=== PATIENT | female | born 1950 | race Caucasian/White ===

== ENCOUNTER 2018-05-04 07:52 | Day surgery (SDC) | payer OTHER ==
--- NOTE | 2018-05-01 12:36 | PREOPHP ---
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 The patient presented for breast cancer screening and was found to have 2 lesions in the left breast. The first is at 1:00 5 cm from the nipple, 13 x 10 x 7 mm and the second is also at 1:00 4 cm from the nipple, 6 x 6 x 4 mm. Core needle biopsy has revealed ductal carcinoma in situ. She is scheduled to undergo excisional biopsy of these lesions with preoperative needle localization. MEDICATIONS: 1. Lantus insulin at night. 2. Metformin. 3. Atorvastatin. 4. Naproxen, which she takes for back disk problems and shoulder problems. 5. She also takes captopril for hypertension. ALLERGIES TO MEDICATIONS: None. PAST SURGICAL HISTORY: Left foot open reduction internal fixation and repair of umbilical hernia. REVIEW OF SYSTEMS: 3, para 3. PHYSICAL EXAMINATION: GENERAL: The patient is 5 foot 3 inches, 168 pounds VITAL SIGNS: Within normal limits. HEENT: Within normal limits. LUNGS: Clear. HEART: Regular rhythm. BREASTS: Examination of the right breast is unremarkable. Examination of the left breast reveals a small palpable nodule at 1 o'clock between the areola and the periphery. There is no axillary or supraclavicular lymphadenopathy. ABDOMEN: Soft. PELVIC AND RECTAL: Per primary care. EXTREMITIES: Without edema. NEUROLOGIC: Physiologic. ASSESSMENT AND PLAN: 1. Ductal carcinoma in situ, left breast, two lesions, upper outer quadrant. 2. Insulin-dependent diabetes. 3. Hypertension. PLAN: Full discussion has been had with the patient regarding the nature of her condition and the nature of the surgery, indications, alternatives, options and risks including bleeding, infection, scarring, distortion of the breast, need for additional surgery based on final pathology report and need for additional treatments based on final pathology, etc. All questions have been answered. She understands and agrees to proceed with left breast excisional biopsy of both lesions with preoperative needle localization. Dictated By: STEVE ALVAREZ/MEGHAN Conf#: [id number] DID#: [id number] PEDRO
[2018-05-04] VITALS (12 sets, daily range): BP systolic 109–158; BP diastolic 65–82; PULSE 61–71; RESP 15–22
[~2018-05-04 07:52] MED LIST: CEFAZOLIN 2 GM/50 ML (PMX) 50 ML IVPB ONE; LIDOCAINE 2% (SDV) 5 ML INJ ONE; SOD CHLORIDE 0.9% 1,000 ML IV SCH
[2018-05-04] MEDS ORDERED: LANT3I SC (08:41)
[2018-05-04] MEDS ORDERED: METF850T13 PO (08:42)
[2018-05-04] MEDS ORDERED: ACETAMINOPHEN 500 MG TAB PO STA (08:42)
--- NOTE | 2018-05-04 11:24 | HPN ---
Date/Time of Note Date/Time of Note DATE: 05/04/18 TIME: 11:23 Interval H&P Admission Note Pt. seen H&P reviewed: No system changes STEVE GUZMAN May 04, 2018 11:24
--- NOTE | 2018-05-04 11:29 | PREAC ---
Date/Time of Note Date/Time of Note DATE: 05/04/18 TIME: 11:15 Anesthesia Eval and Record Evaluation Time Pre-Procedure Interview DATE: 05/04/18 TIME: 11:15 Age 67 Sex female NPO: 8 hrs Preoperative diagnosis L DCIS Planned procedure L breast biopsy w/ needle localization Past Medical History Past Medical History: Includes Cardio: HTN, Dyslipidemia Endo: Diabetes Surgery & Anesthesia Issues No known issue (umbilical hernia, L foot ORIF) Meds Anticoagulation: No Beta Colby within 24 hr: No Reason Beta Colby not given: Pt. not on B-Colby Reported Medications Metformin Hcl* (Metformin Hcl*) 850 Mg Tablet, 850 MG PO WITH MEALS, #60 TAB 05/04/18 Insulin Glargine* (Lantus*) 100 Unit/Ml Soln, 40 UNIT SC QHS, #1 VIAL 05/04/18 Current Medications Sodium Chloride 1,000 ml @ 75 mls/hr [id number] IV ; Start 05/04/18 at 07:00; Stop 05/04/18 at 20:19 Meds reviewed: Yes Allergies Coded Allergies: No Known Drug Allergies (Unverified Allergy, Unknown, 05/04/18) Allergies Reviewed: Yes Labs/Studies Labs Reviewed: Reviewed by anesthesiologist Result Diagram: 05/04/18 0800 05/04/18 0800 Laboratory Tests 05/04/18 08:00 test: Negative Studies: ECG (nsr, nml) Pre-procedure Exam Last vitals Vital Signs Date Temp Pulse Resp B/P (MAP) Pulse Ox O2 O2 Flow FiO2 Time Delivery Rate 05/04/18 97.0 71 18 158/82 Room Air 10:26 (107) Airway: Adequate mouth opening, Adequate thyromental dist Mallampati: Mallampati II Teeth: Abnormal (edentulous; dentures removed) Lung: Normal Heart: Normal ASA Physical Status ASA physical status: 2 Emergency: None Planned Anesthetic General/MAC: LMA Pre-operative Attestations Prior to commencing anesthesia and surgery, the patient was re-evaluated, there was verification of: *The patient's identity *The results of appropriate recent lab work and preoperative vital signs *The above evaluation not changing prior to induction *Anesthetic plan, risk benefits, alternative and complications discussed with patient/family; questions answered; patient/family understands, accepts and wishes to proceed. ORESTES CORTÉS May 04, 2018 11:25
[2018-05-04] MEDS ORDERED: MEPERIDINE 25 MG INJ IV PRN (11:30)
[2018-05-04] MEDS ORDERED: LABETALOL HCL 20MG INJ IV PRN (11:30)
[2018-05-04] MEDS ORDERED: FENTAnyl 50 MCG/ML VIAL IV PRN ×2 (11:30)
[2018-05-04] MEDS ORDERED: ONDANSETRON 4 MG INJ IV PRN (11:30)
[2018-05-04] MEDS ORDERED: HYDROmorphONE 1 MG/5 ML IV SYRINGE IV PRN ×2 (11:30)
[2018-05-04] MEDS ORDERED: DIPHENHYDRAMINE 50 MG INJ IV PRN (11:30)
[2018-05-04] MEDS ORDERED: OXYCODONE/ACETAMINOPHEN (5/325) TAB PO PRN ×2 (11:30)
[2018-05-04] MEDS ORDERED: ALBUTEROL 0.083% (NEB) 2.5 MG/3 ML AMP HHN PRN (11:30)
[2018-05-04] MEDS ORDERED: CEFAZOLIN 1 GM INJ ONE (11:53)
[2018-05-04] MEDS ORDERED: FENTAnyl 50 MCG/ML VIAL ONE (11:53)
[2018-05-04] MEDS ORDERED: PROPOFOL 20 ML ONE (11:53)
[2018-05-04] MEDS ORDERED: FAMOTIDINE 20 MG INJ ONE (11:53)
[2018-05-04] MEDS ORDERED: ONDANSETRON 4 MG INJ ONE (12:01)
--- NOTE | 2018-05-04 12:59 | SIPON ---
Date/Time of Note Date/Time of Note DATE: 05/04/18 TIME: 12:57 Operative Report Preoperative Diagnosis DCIS left breast Postoperative Diagnosis same Operation/Procedure Performed left breast partial mastectomy with pre-op needle localization Surgeon see signature line pastry assistant none Anesthesia: general Estimated blood loss: minimal Transfusion Required none Specimen left breast partial mastectomy Grafts/Implants none Complications none STEVE GUZMAN May 04, 2018 12:59
--- NOTE | 2018-05-04 13:00 | PAC ---
Date/Time of Note Date/Time of Note DATE: 05/04/18 TIME: 13:00 Post-Anesthesia Notes Post-Anesthesia Note Last documented vital signs Vital Signs Date Temp Pulse Resp B/P (MAP) Pulse Ox O2 O2 Flow FiO2 Time Delivery Rate 05/04/18 98.0 67 18 119/65 98 face mask 8L 1255 (83) Activity: WNL Respiratory function: WNL Cardiovascular function: WNL Mental status: Baseline Pain reasonably controlled: Yes Hydration appropriate: Yes Nausea/Vomiting absent: Yes ORESTES CORTÉS May 04, 2018 13:00
--- NOTE | 2018-05-04 14:42 | OPR ---
DATE OF OPERATION: 05/04/2018 SURGEON: Steve Macias MD DIRECTOR OF PLACEMENT: None. ANESTHESIOLOGIST: Taryn Sanders MD ANESTHESIA: General. PREOPERATIVE DIAGNOSIS: Ductal carcinoma in situ, left breast. POSTOPERATIVE DIAGNOSIS: Ductal carcinoma in situ, left breast. OPERATION PERFORMED: Left breast partial mastectomy with preoperative needle localization. DESCRIPTION OF PROCEDURE: The patient was taken to the operating room and under general anesthesia with sequential compression device stockings in place and having received intravenous antibiotics, the patient was prepped and draped in the usual fashion. A curvilinear upper outer quadrant left breast incision was made achieving hemostasis with cautery. Flaps were dissected circumferentially. A partial mastectomy was performed incorporating the needle localization and the specimen was oriented anterior, superior and medial. Specimen radiograph confirmed the presence of the lesion within the specimen. The field was irrigated and hemostasis was secured with cautery. The incision was closed with interrupted 3-0 Vicryl deep dermal subcutaneous sutures followed by 4-0 Monocryl continuous subcuticular suture. Tincture of benzoin and 1/2- inch Steri-Strips were applied, followed by dry sterile dressing. Final sponge and needle counts were correct. The patient tolerated the procedure well and left the operating room in stable condition. Dictated By: STEVE ALVAREZ/MEGHAN Conf#: [id number] DID#: [id number] MTDD
--- NOTE | 2018-05-05 12:02 | RADRPT ---
Vent Rate: 71 bpm RR Interval: 0 msec ID Interval: 140 msec QRS Duration: 80 msec QT Interval: 372 msec QTC Interval: 404 msec P-R-T Furman: 44 - 57 - 39 degrees Normal sinus rhythm Normal ECG Electronically Signed By: Ras Nails [id number]
== END 2018-05-04 14:18 | disposition home or self-care (01) ==
LOC: SDS 07:52
PROVIDERS: ATTEND Surgery
DX: D05.12 Intraductal carcinoma in situ of left breast (principal); I10 Essential (primary) hypertension; E11.9 Type 2 diabetes mellitus without complications; E78.5 Hyperlipidemia, unspecified
CPT/HCPCS: 19301; 71045; 80053; 81001; 82962; 85025; 85610; 85730; 87086; 88307; 93005; J0690; J2405; J3010